=== PATIENT | female | born 1940 | race Caucasian/White ===

== ENCOUNTER 2016-12-03 13:15 | Emergency (ER) | payer MEDICARE, OTHER ==
[2016-12-03 13:55] LABS: BASOPHIL 0.4 % (0-2); EOSINOPHIL 0.6 % (0-7); HCT 38.5 % (37.0-47.0); HGB 12.9 g/dl (12.5-16.0); LYMPHOCYTE 36.1 % (15-48); MCH 28.8 pg (25.0-31.0); MCHC 33.5 g/dL (32.0-36.0); MCV 85.9 fL (78.0-100.0); MONOCYTE 9.7 % (0-12); MPV 8.2 fL (6.0-9.5); NEUTROPHIL 53.2 % (41-80); PLT 225 K/uL (150-400); RBC 4.48 M/uL (4.20-5.40); RDW 13.5 % (11.5-14.0); WBC 4.7 K/uL (4.0-10.5)
[2016-12-03 14:04] LABS: ALBUMIN 4.6 g/dL (3.4-4.8); BILIRUBIN - TOTAL 0.3 mg/dL (0.1-1.0); CREATININE 0.6 mg/dL (0.5-1.0); GLOBULIN (CALCULATION) 2.4 g/dL (2.2-4.2); POTASSIUM 3.4 mmol/L (3.5-5.1)
[2016-12-03 14:34] LABS: BILIRUBIN NEGATIVE (NEGATIVE); BLOOD 1+ Ery/uL (NEGATIVE); CLARITY CLEAR (CLEAR); COLOR YELLOW (YELLOW); GLUCOSE (U) NORMAL (NORMAL); KETONE (U) NEGATIVE (NEGATIVE); LEUKOCYTES TRACE Leu/uL (NEGATIVE); NITRITE NEGATIVE (NEGATIVE); PROTEIN NEGATIVE (NEGATIVE); SPECIFIC GRAVITY <=1.005 (1.001-1.030); UROBILINOGEN 0.2 mg/dL (0.2-1.0); pH 6.5 (5.0-9.0)
[2016-12-03 14:38] LABS: BACTERIA TRACE
== END 2016-12-03 15:53 | disposition home or self-care (01) ==
LOC: FER 13:15
PROVIDERS: Emergency Medicine
DX: F41.9 Anxiety disorder, unspecified (principal); F32.9 Major depressive disorder, single episode, unspecified; R53.1 Weakness; I10 Essential (primary) hypertension; G89.29 Other chronic pain; M54.9 Dorsalgia, unspecified; Z88.5 Allergy status to narcotic agent; Z88.8 Allergy status to other drugs, medicaments and biological substances; Z79.899 Other long term (current) drug therapy
CPT/HCPCS: 36415; 80053; 81001; 84443; 85025; 99284

== ENCOUNTER 2021-04-24 09:53 | Day surgery (SDCO) | payer MEDICARE ==
[~2021-04-24] VITALS: Ht 157.5 cm; Wt 61.7 kg
[~2021-04-24 09:53] MED LIST: ATARAX25 MG PO; K-DUR20 MEQ PO
[2021-04-24 12:14] LABS: BILIRUBIN NEGATIVE (NEGATIVE); BLOOD TRACE-INTACT Ery/uL (NEGATIVE); CLARITY CLEAR (CLEAR); COLOR YELLOW (YELLOW); GLUCOSE (U) NORMAL (NORMAL); LEUKOCYTES 1+ Leu/uL (NEGATIVE); NITRITE NEGATIVE (NEGATIVE); PROTEIN NEGATIVE (NEGATIVE); SPECIFIC GRAVITY 1.025 (1.001-1.030); UROBILINOGEN 0.2 mg/dL (0.2-1.0)
[2021-04-24 12:20] LABS: BACTERIA 2+; BASOPHIL 1.4 % (0-2); EOSINOPHIL 9.7 % (0-7); HCT 29.3 % (37.0-47.0); HGB 9.7 g/dl (12.5-16.0); LYMPHOCYTE 36.6 % (15-48); MCH 27.3 pg (25.0-31.0); MCHC 33.1 g/dL (32.0-36.0); MCV 82.5 fL (78.0-100.0); MONOCYTE 16.2 % (0-12); MPV 9.1 fL (6.0-9.5); NEUTROPHIL 20.8 % (41-80); NRBC 2.3; RBC 3.55 M/uL (4.20-5.40); RDW 13.7 % (11.5-14.0); SQUAMOUS EPITHELIAL CELLS >50; WBC 2.2 K/uL (4.0-10.5)
[2021-04-24 12:21] LABS: PLT 60 K/uL (150-400)
[2021-04-24 12:43] LABS: ALBUMIN 3.4 g/dL (3.4-5.0); BILIRUBIN - TOTAL 0.5 mg/dL (0.2-1.0); BUN/CREAT RATIO (CALC) 32.3 RATIO; CREATININE 1.61 mg/dL (0.51-0.95); GLOBULIN (CALCULATION) 3.6 g/dL; POTASSIUM 3.5 mmol/L (3.5-5.1)
[2021-04-24 12:51] LABS: CORONAVIRUS 2019 SARS-COV-2 NEGATIVE (NEGATIVE); INFLUENZA A NAA NEGATIVE (NEGATIVE)
[2021-04-24] MEDS ORDERED: PRINIVIL20 MG PO (17:07)
[2021-04-24] MEDS ORDERED: TYLENOL #3 6-P1 EACH PO (17:09)
[2021-04-24 18:11] LABS: FOLIC ACID (SERUM) > 100.0 ng/mL (8.6-58.9); LDH >4000 U/L (81-234)
[2021-04-25 05:11] LABS: BASOPHIL 0.7 % (0-2); EOSINOPHIL 0.2 & (0-7); HCT 22.1 % (37.0-47.0); HGB 7.4 g/dl (12.5-16.0); LYMPHOCYTE 43.1 % (15-48); MCH 27.7 pg (25.0-31.0); MCHC 33.5 g/dL (32.0-36.0); MCV 82.8 fL (78.0-100.0); MONOCYTE 31.7 % (0-12); MPV 9.2 fL (6.0-9.5); NEUTROPHIL 22.6 % (41-80); RBC 2.67 M/uL (4.20-5.40); RDW 13.6 % (11.5-14.0); WBC 4.04 K/uL (4.0-10.5)
[2021-04-25 05:12] LABS: PLT 48 K/uL (150-400)
[2021-04-25 05:49] LABS: ALBUMIN 2.7 g/dL (3.4-5.0); BILIRUBIN - TOTAL 0.4 mg/dL (0.2-1.0); BUN/CREAT RATIO (CALC) 29.3 RATIO; C-REACTIVE PROTEIN 1.9 mg/dL (<=0.90); CREATININE 1.47 mg/dL (0.51-0.95); POTASSIUM 3.3 mmol/L (3.5-5.1); TOTAL PROTEIN 5.7 g/dL (6.4-8.2)
[2021-04-25 20:50] LABS: RETICULOCYTE COUNT 0.4 % (1.0-2.0)
[2021-04-26 06:28] LABS: BASOPHIL 0.7 % (0-2); HCT 26.8 % (37.0-47.0); MCH 27.7 pg (25.0-31.0); MCHC 33.6 g/dL (32.0-36.0); MCV 82.5 fL (78.0-100.0); MONOCYTE 15.2 % (0-12); NEUTROPHIL 27.9 % (41-80); RBC 3.25 M/uL (4.20-5.40); RDW 13.8 % (11.5-14.0); WBC 4.02 K/uL (4.0-10.5)
[2021-04-26 06:29] LABS: PLT 63 K/uL (150-400)
[2021-04-26 06:30] LABS: LYMPHOCYTE 54.5 % (15-48)
[2021-04-26 06:43] LABS: ALBUMIN 2.9 g/dL (3.4-5.0); BILIRUBIN - TOTAL 0.4 mg/dL (0.2-1.0); BUN/CREAT RATIO (CALC) 21.7 RATIO; CREATININE 1.43 mg/dL (0.51-0.95); GLOBULIN (CALCULATION) 3.2 g/dL; POTASSIUM 3.9 mmol/L (3.5-5.1); TOTAL PROTEIN 6.1 g/dL (6.4-8.2); URIC ACID 9.5 mg/dL (2.6-6.2)
[2021-04-26 11:53] LABS: NRBC 0; RETICULOCYTE COUNT 0.6 % (1.0-2.0)
[2021-04-26 14:08] LABS: CALCIUM, SERUM 12.9 mg/dL (8.7-10.3); PTH, INTACT 11 pg/mL (15-65)
[2021-04-27 07:43] LABS: BASOPHIL 0.6 % (0-2); EOSINOPHIL 0.3 % (0-7); HCT 22.2 % (37.0-47.0); HGB 7.6 g/dl (12.5-16.0); MCH 28.5 pg (25.0-31.0); MCHC 34.2 g/dL (32.0-36.0); MCV 83.1 fL (78.0-100.0); MONOCYTE 25.2 % (0-12); NRBC 0; PLT 59 K/uL (150-400); RBC 2.67 M/uL (4.20-5.40); WBC 3.3 K/uL (4.0-10.5)
[2021-04-27 07:48] LABS: LYMPHOCYTE 58.5 % (15-48)
[2021-04-27 08:01] LABS: ALBUMIN 2.4 g/dL (3.4-5.0); BILIRUBIN - TOTAL 0.4 mg/dL (0.2-1.0); BUN/CREAT RATIO (CALC) 20.6 RATIO; CREATININE 1.26 mg/dL (0.51-0.95); GLOBULIN (CALCULATION) 2.7 g/dL; POTASSIUM 3.5 mmol/L (3.5-5.1); TOTAL PROTEIN 5.1 g/dL (6.4-8.2)
--- NOTE | 2021-04-27 16:31 | NUR ---
PT. RESIDES ALONE. SHE HAS TWO SONS WHO ARE VERY SUPPORTIVE. SHE IS INDEPENDENT AND HAS NO DME. SHE DOES NOT WISH TO HAVE HH.
== END 2021-04-27 18:07 | disposition home or self-care (01) ==
LOC: FER 09:53 → FMS 14:53
PROVIDERS: Internal Medicine; ADMIT Internal Medicine
DX: D61.818 Other pancytopenia (principal); R16.1 Splenomegaly, not elsewhere classified; E83.52 Hypercalcemia; N30.00 Acute cystitis without hematuria; G89.4 Chronic pain syndrome; I12.9 Hypertensive chronic kidney disease with stage 1 through stage 4 chronic kidney disease, or unspecified chronic kidney disease; N18.9 Chronic kidney disease, unspecified; N17.9 Acute kidney failure, unspecified; G62.9 Polyneuropathy, unspecified; K57.30 Diverticulosis of large intestine without perforation or abscess without bleeding; Z78.0 Asymptomatic menopausal state; Z79.899 Other long term (current) drug therapy; Z88.2 Allergy status to sulfonamides; Z88.5 Allergy status to narcotic agent; Z88.6 Allergy status to analgesic agent; Z20.822 Contact with and (suspected) exposure to COVID-19
CPT/HCPCS: 36415; 36430; 71045; 71250; 80053; 81001; 82310; 82607; 82728; 82746; 83540; 83615; 83690; 83970; 84484; 84550; 85025; 86140; 86850; 86900; 86901; 86922; 87088; 93005; G0378; J0696; J1170; J2405; J2930; J3489; J7030; J7120; P9016; U0002